=== PATIENT | male | born 1945 ===

== ENCOUNTER 2016-12-19 11:00 | Emergency (ER) | payer MEDICARE, MEDICAID ==
--- NOTE | ~2016-12-19 | ER ---
PATIENT'S NAME: CRISTIANE MEADOWS [facility] AGE: 71 Y [address] ROOM: [place] [address] LOCATION: [facility] ADMIT DATE: 12/19/2016 ER/Outpatient Report DISCHARGE DATE: 12/19/2016 FAMILY PHYSICIAN: Dillon Figueroa MD ATTENDING PHYSICIAN: Shukri Donaldson Time of Arrival: 1100 hours. Time of Evaluation: 1100 hours. CHIEF COMPLAINT: Fall. HISTORY OF PRESENT ILLNESS: The patient is a 71-year-old male who presents to the emergency department today with chief complaint of fall. The patient reports that the 1800 last evening he was attempting to walk up once there when he tripped and fell landing on his right side on his right head. He does report he lost consciousness for about 3 minutes, then he was able to get up with assistance from the son. He did vomit once last night. He has tenderness to his right shoulder, sharp pain, worse with movement. Currently 3/10 in severity. Denies any chest pain. No shortness of breath. No fevers or chills. No diarrhea or constipation. PAST MEDICAL HISTORY: Rcc-mvzpmol-fgtxcuvzg diabetes, CVA with right sided deficits. PAST SURGICAL HISTORY: None. SOCIAL HISTORY: The patient denies any tobacco, alcohol, or illicit drug use. ALLERGIES: NO KNOWN DRUG ALLERGIES. MEDICATIONS: Please see list. PRIMARY CARE DOCTOR: Dillon Figueroa MD. REVIEW OF SYSTEMS: All systems are reviewed by myself and negative with the exception of those discussed in HPI and past medical history. PATIENT'S NAME: CRISTIANE MEADOWS [facility] AGE: 71 Y [address] ROOM: [place] [address] LOCATION: [facility] ADMIT DATE: 12/19/2016 ER/Outpatient Report DISCHARGE DATE: 12/19/2016 FAMILY PHYSICIAN: Dillon Figueroa MD ATTENDING PHYSICIAN: Shukri Donaldson PHYSICAL EXAMINATION: VITAL SIGNS: Weight 68 kg. Blood pressure 136/73, pulse 78, respiratory rate 16, temperature 97.3, oxygen saturation 99% on room air. GENERAL: The patient is a 71-year-old male who appears stated age, in no acute distress at this time. Well developed, well nourished. HEENT. Head is normocephalic, atraumatic. Pupils are equal, round, and reactive to light and accommodation. Extraocular motions are intact. Nares are patent bilaterally. TMs are clear. Oropharynx is clear. NECK: Supple. There is no nuchal rigidity. No midline tenderness to palpation. No step-offs or deformities. CARDIOVASCULAR: Regular rate and rhythm. No murmurs, rubs, or gallops. LUNGS: Clear to auscultation bilaterally. No wheezes, rales, or rhonchi. ABDOMEN: Soft, nontender, and nondistended. No rebound, rigidity, or guarding. MUSCULOSKELETAL: The patient does have some mild tenderness to palpation of the right shoulder. He does have full range of motion. He is neurovascularly intact. SKIN: Warm and dry without rashes or lesions noted. LABORATORY DATA AND X-RAYS: CBC is unremarkable. CMP is unremarkable. LFTs are normal. CT scan of the brain is negative except for posterior scalp hematoma. CT scan of the C-spine shows degenerative changes. No acute process. IMPRESSION: 1. Ground-level fall. 2. Posterior scalp hematoma. 3. Acute right shoulder strain. 4. Initial visit. EMERGENCY DEPARTMENT COURSE: The patient was brought back to the examination room. Seen and evaluated by myself. Laboratory analysis and imaging are obtained as described above. I have discussed results with the patient and obtain history and physical through the use of content production specialist. I have discussed the results with the patient. He does have an excellent overall clinical appearance at this time. I have asked follows up with Dr. Figueroa in 2-3 days for re-evaluation. I have recommended Tylenol as needed for pain. I have discussed return to care instructions including worsening symptoms or any other concerns to return to the emergency department as soon as possible. The patient is agreeable without further questions at this time. DISPOSITION: The patient discharged home in good condition. PATIENT'S NAME: DELMY SHANE [facility] AGE: 71 Y [address] ROOM: [place], [place] [address] LOCATION: [facility] ADMIT DATE: 12/19/2016 ER/Outpatient Report DISCHARGE DATE: 12/19/2016 FAMILY PHYSICIAN: Dillon Figueroa MD ATTENDING PHYSICIAN: Shukri Donaldson DO PAUL BROOKS/alex /[id number] d: 12/19/16 1350 t: 12/20/16 0609, OUTPATIENT REPORT
[2016-12-19 11:27] LABS: BASOPHIL # 0.1 K/uL (0.0-0.2); BASOPHIL % 0.6 %; EOSINOPHIL # 0.1 K/uL (0.0-0.5); HEMATOCRIT 35.7 % (37.0-53.0); HEMOGLOBIN 11.7 g/dL (11.0-16.0); IMMATURE GRANULOCYTE % 0.4 %; MCH 30.2 pg (27.0-34.0); MCHC 32.8 gm/dL (32.0-36.5); MCV 92.2 fl (83.0-98.0); MONOCYTE # 0.7 K/uL (0.0-1.0); MONOCYTE % 8.7 %; MPV 9.1 fl (9.4-12.4); NEUTROPHIL # (ANC) 5.9 K/uL (1.4-9.0); NEUTROPHIL % 76.3 %; NRBC % 0 /100WBC (0-0.00); PLATELET COUNT 211 K/uL (150-450); RBC 3.87 M/uL (3.50-5.50); RDW-CV 14.1 % (11.9-14.6); WBC 7.8 K/uL (4.0-11.0)
[2016-12-19 11:46] LABS: ALBUMIN 3.8 gm/dL (3.5-5.0); ANION GAP 10.7 (10.0-19.0); CALCIUM 9.2 mg/dL (8.5-10.5); POTASSIUM 4.7 mMol/L (3.7-5.1); TOTAL BILIRUBIN 0.3 mg/dL (0.0-1.5); TOTAL PROTEIN 7.3 g/dL (6.0-8.4)
== END 2016-12-19 12:04 | disposition disaster alternative care site (69) ==
LOC: GACC 11:00
PROVIDERS: Emergency Medicine
DX: S46.911A Strain of unspecified muscle, fascia and tendon at shoulder and upper arm level, right arm, initial encounter (principal); S00.03XA Contusion of scalp, initial encounter; E11.9 Type 2 diabetes mellitus without complications; Z86.73 Personal history of transient ischemic attack (TIA), and cerebral infarction without residual deficits; Z79.84 Long term (current) use of oral hypoglycemic drugs; Z79.899 Other long term (current) drug therapy; W01.0XXA Fall on same level from slipping, tripping and stumbling without subsequent striking against object, initial encounter

== ENCOUNTER → 2017-01-05 | Outpatient (CLI) | payer MEDICARE, MEDICAID | END | disposition disaster alternative care site (69) | LOC: GKIC 13:59 → GRAD 14:00 | DX: R26.9 Unspecified abnormalities of gait and mobility (principal); R42 Dizziness and giddiness; J32.4 Chronic pansinusitis; Z91.81 History of falling ==